=== PATIENT | female | born 1980 | race African-American/Black ===

== ENCOUNTER 2018-08-24 21:31 | Emergency (ER) | payer MEDICAID ==
[~2018-08-24] VITALS: Ht 165.1 cm; Wt 68.3 kg
[2018-08-24] MEDS ORDERED: HYDROCODONE/ACETAMINOPHEN 5/325MG TABLET PO ONE (23:00)
[2018-08-24 23:34] VITALS: BP 139/65
== END 2018-08-24 23:44 | disposition home or self-care (01) ==
LOC: ER 23:43
DX: K08.89 Other specified disorders of teeth and supporting structures (principal); E05.90 Thyrotoxicosis, unspecified without thyrotoxic crisis or storm; D25.9 Leiomyoma of uterus, unspecified; F17.210 Nicotine dependence, cigarettes, uncomplicated; F12.10 Cannabis abuse, uncomplicated
CPT/HCPCS: 99283